=== PATIENT | female | born 1975 | race Caucasian/White ===

== ENCOUNTER → 2020-12-05 12:47 | Outpatient (CLI) | payer BC, SELFPAY ==
--- NOTE | ~2020-12-05 | US_ITS ---
EXAMINATION: US pelvic complete w TV DATE: 12/05/2020 13:15 INDICATION: Menorrhagia Comparison:No prior studies for comparison. TECHNIQUE: Multiple transabdominal and endovaginal sonographic images of the pelvis performed. FINDINGS: The uterus measures 9.7 x 4.9 x 5.4 cm. There is a nabothian cyst measuring 1.3 cm. The end ometrial complex measures 11 mm. The right ovary measures 2.1 x 2.3 x 2.5 cm and the left ovary measures 4 x 2.6 x 1.9 cm. There is a 3.4 cm left ovarian cyst. There is no free fluid in the pelvis. There are no abnormal masses seen on either side. IMPRESSION: 1. Left ovarian cyst measuring 3.4 cm. Reviewed, dictated and finalized at location A.
== END ==
PROVIDERS: Visit Provider Family Medicine
DX: N92.0 Excessive and frequent menstruation with regular cycle (principal); N83.202 Unspecified ovarian cyst, left side
CPT/HCPCS: 76830; 76856